=== PATIENT | male | born 1990 | race African-American/Black ===

== ENCOUNTER 2017-02-07 20:04 | Emergency (ER) | payer SELFPAY ==
[~2017-02-07] VITALS: Ht 190.5 cm; Wt 190.0 kg
[~2017-02-07 20:04] MED LIST: ASPI81TA82 PO; Z.0.NO CURRENT MEDS
[2017-02-07 20:06] VITALS: BP 176/100; PULSE 61; RESP 18; TEMP 98.1; O2SAT 100
[2017-02-07] MEDS ORDERED: ASPI81CH CHEW (21:05)
[2017-02-07] MEDS ORDERED: SODIUM CHLOR 0.9% 1000 ML INJ 1,000 ML IV ONE (21:33)
--- NOTE | 2017-02-07 21:34 | PD ---
HPI Chief Complaint: Medical Clearance Time Seen by Provider: 21:25 Travel History International Travel<30 days: No Contact w/Intl Traveler<30days: No Traveled to known affect area: No History of Present Illness HPI 26-year-old male presents to the emergency department for evaluation of dizziness and "feeling dazed" that started today. He states he has not felt right today. He denies any headache. No fevers, chills. He denies any chest pain or shortness of breath. He does state that he had some pressure in his neck earlier which was very mild. He denies any cardiac history. He denies any nausea, vomiting, diarrhea. He states he had some mild stomach pain earlier. Patient reports history of chronic leg pain. He takes aspirin daily, but no other medications. Patient denies any fevers or chills. He states that he felt like this in the past and was given meclizine. He thinks that he may be stressed out. No weakness. He states he was drinking alcohol this weekend. He states he did not drink water and thinks he may be dehydrated. [facility] Past Medical History Medical History: Denies Significant Hx Autoimmune Disease: No Cancer: No Cardiovascular Problems: No Diabetes: No Diminished Hearing: No Endocrine: No Glaucoma: No Genitourinary: No Hepatitis: No Hiatal Hernia: No Hypertension: Yes Immune Disorder: No Musculoskeletal: No Neurologic: No Psychiatric: No Reproductive: No Respiratory: No Immunizations Current: Yes Sickle Cell Disease: No Thyroid Disease: No Tetanus Vaccination: Unknown Influenza Vaccination: No Past Surgical History Abdominal Surgery: No Cardiac Surgery: No Ear Surgery: No Endocrine Surgery: No Eye Surgery: No Genitourinary Surgery: No Gynecologic Surgery: No Oral Surgery: No Pacemaker: No Thoracic Surgery: No Social History Alcohol Use: Yes (social) Tobacco Use: No Substance Use: No Allergies-Medications (Allergen,Severity, Reaction): Coded Allergies: No Known Allergies (Verified , 02/07/17) Reported Meds & Prescriptions Reported Meds & Active Scripts Active Reported Aspirin 81 Mg Chew 81 Mg CHEW ONCE Review of Systems Except as stated in HPI: all other systems reviewed are Neg Physical Exam Narrative GENERAL: Well-nourished, well-developed male patient, afebrile. SKIN: Focused skin assessment warm/dry. HEAD: Normocephalic. Atraumatic. EYES: No scleral icterus. No injection or drainage. NECK: Supple, trachea midline. No JVD or lymphadenopathy. CARDIOVASCULAR: Regular rate and rhythm without murmurs, gallops, or rubs. RESPIRATORY: Breath sounds equal bilaterally. No accessory muscle use. Lungs sounds are clear to auscultation. GASTROINTESTINAL: Abdomen soft, non-tender, nondistended. MUSCULOSKELETAL: No cyanosis, or edema. Bilateral upper and lower extremity strength 5/5. All extremities are neurovascularly intact. BACK: Nontender without obvious deformity. No CVA tenderness. NEUROLOGICAL: Awake and alert. Cranial nerves II through XII intact. Motor and sensory grossly within normal limits. Five out of 5 muscle strength in all muscle groups. Normal speech. Finger to nose normal bilaterally. [id number] is normal bilaterally. Data Data Last Documented VS Vital Signs Date Time Temp Pulse Resp B/P (MAP) Pulse Ox O2 Delivery O2 Flow Rate FiO2 02/07/17 22:03 16 98 Room Air 02/07/17 20:06 98.1 61 Orders Orders Electrocardiogram (02/07/17 21:33) Complete Blood Count With Diff (02/07/17 21:33) Comprehensive Metabolic Panel (02/07/17 21:33) Magnesium (Mg) (02/07/17 21:33) Ckmb (Isoenzyme) Profile (02/07/17 21:33) Troponin I (02/07/17 21:33) Ecg Monitoring (02/07/17 21:33) Iv Access Insert/Monitor (02/07/17 21:33) Oximetry (02/07/17 21:33) Sodium Chloride 0.9% Flush (Ns Flush) (02/07/17 21:45) Sodium Chlor 0.9% 1000 Ml Inj (Ns 1000 M (02/07/17 21:33) Meclizine (Antivert) (02/07/17 21:45) Labs Laboratory Tests Test 02/07/17 21:50 MDM Medical Decision Making Medical Screen Exam Complete: Yes Emergency Medical Condition: Yes Medical Record Reviewed: Yes Differential Diagnosis Vertigo versus dehydration versus electrolyte abnormality Narrative Course 26 year old male presents to the emergency department for evaluation of dizziness, feeling dazed today. He appears well on exam. Physical exam is unremarkable. EKG, CBC, CMP, CK, Troponin, Magnesium are ordered and pending. Patient is given NS 1 L IV bolus, meclizine 25 mg PO. EKG shows sinus bradycardia, HR 53, no acute ST changes. Labs are pending. Dr. Orr will resume care and disposition of patient pending lab results. Gloria Petersen Feb 07, 2017 21:34
[2017-02-07] MEDS ORDERED: MECLIZINE HCL 25 MG TAB PO ONE (21:45)
[2017-02-07] MEDS ORDERED: SODIUM CHLORIDE 0.9% FLUSH 10 ML FLUSH IVF PRN (21:45)
[2017-02-07 22:03] VITALS: RESP 16; O2SAT 98
[2017-02-07 22:52] VITALS: BP 128/72; PULSE 65; RESP 16; O2SAT 99
[2017-02-07 23:49] LABS: AUTOMATED NEUTROPHIL # 6.5 TH/MM3 (1.8-7.7); BASOPHIL # 0.1 TH/MM3 (0-0.2); BASOPHIL % 0.8 % (0.0-2.0); EOSINOPHIL # 0.2 TH/MM3 (0-0.4); HEMATOCRIT 45.3 % (39.0-51.0); LYMPH % 24.9 % (9.0-44.0); LYMPHOCYTE # 2.5 TH/MM3 (1.0-4.8); MEAN CELL VOLUME 81.1 FL (80.0-100.0); MEAN CORPUSCULAR HEMOGLOBIN 26.9 PG (27.0-34.0); MEAN CORPUSCULAR HGB CONC 33.2 % (32.0-36.0); MONO % 6.4 % (0.0-8.0); NEUT % 65.9 % (16.0-70.0); PLATELET COUNT 243 TH/MM3 (150-450); RED BLOOD COUNT 5.59 MIL/MM3 (4.50-5.90); RED CELL DISTRIBUTION WIDTH 14.6 % (11.6-17.2); WHITE BLOOD COUNT 9.9 TH/MM3 (4.0-11.0)
[2017-02-07 23:52] LABS: HEMO FLAGS AUTO DIFF
[2017-02-08 00:16] LABS: PLATELET ESTIMATE SMEAR NORMAL (NORMAL); PLATELET MORPHOLOGY NORMAL (NORMAL); SCAN/DIFF AUTO DIFF CONFIRMED
[2017-02-08 01:45] LABS: ALT (GPT) 30 U/L (12-78); ANION GAP 7 MEQ/L (5-15); AST (GOT) 16 U/L (15-37); BICARBONATE 26.7 MEQ/L (21.0-32.0); BLOOD UREA NITROGEN 11 MG/DL (7-18); CHLORIDE 105 MEQ/L (98-107); GLOMERULAR FILTRATION RATE 117 ML/MIN (>89); MAGNESIUM 1.9 MG/DL (1.5-2.5); POTASSIUM 3.6 MEQ/L (3.5-5.1); SODIUM (NA) 139 MEQ/L (136-145)
[2017-02-08 01:49] LABS: ALKALINE PHOSPHATASE 46 U/L (45-117); CREATINE KINASE 515 U/L (39-308); TOTAL BILIRUBIN ADULT 0.4 MG/DL (0.2-1.0)
[2017-02-08 02:02] LABS: CKMB 11.2 NG/ML (0.5-3.6)
--- NOTE | 2017-02-08 02:14 | PD ---
Physical Exam Narrative Patient was seen by my mobile unit assistant and signed out to me. Data Data Last Documented VS Vital Signs Date Time Temp Pulse Resp B/P (MAP) Pulse Ox O2 Delivery O2 Flow Rate FiO2 02/07/17 22:52 65 16 128/72 (90) 99 Room Air 02/07/17 20:06 98.1 Orders Orders Electrocardiogram (02/07/17 21:33) Complete Blood Count With Diff (02/07/17 21:33) Comprehensive Metabolic Panel (02/07/17 21:33) Magnesium (Mg) (02/07/17 21:33) Ckmb (Isoenzyme) Profile (02/07/17 21:33) Troponin I (02/07/17 21:33) Ecg Monitoring (02/07/17 21:33) Iv Access Insert/Monitor (02/07/17 21:33) Oximetry (02/07/17 21:33) Sodium Chloride 0.9% Flush (Ns Flush) (02/07/17 21:45) Sodium Chlor 0.9% 1000 Ml Inj (Ns 1000 M (02/07/17 21:33) Meclizine (Antivert) (02/07/17 21:45) CKMB (02/07/17 01:05) CKMB% (02/07/17 01:05) Labs Laboratory Tests Test 02/07/17 01:05 02/07/17 23:00 Blood Urea Nitrogen 11 MG/DL Creatinine 0.95 MG/DL Random Glucose 99 MG/DL Total Protein 7.7 GM/DL Albumin 3.6 GM/DL Calcium Level 8.5 MG/DL Magnesium Level 1.9 MG/DL Alkaline Phosphatase 46 U/L Aspartate Amino Transf (AST/SGOT) 16 U/L Alanine Aminotransferase (ALT/SGPT) 30 U/L Total Bilirubin 0.4 MG/DL Sodium Level 139 MEQ/L Potassium Level 3.6 MEQ/L Chloride Level 105 MEQ/L Carbon Dioxide Level 26.7 MEQ/L Anion Gap 7 MEQ/L Estimat Glomerular Filtration Rate 117 ML/MIN Total Creatine Kinase 515 U/L Creatine Kinase MB 11.2 NG/ML Creatine Kinase MB % 2.2 % Troponin I LESS THAN 0.02 NG/ML White Blood Count 9.9 TH/MM3 Red Blood Count 5.59 MIL/MM3 Hemoglobin 15.0 GM/DL Hematocrit 45.3 % Mean Corpuscular Volume 81.1 FL Mean Corpuscular Hemoglobin 26.9 PG Mean Corpuscular Hemoglobin Concent 33.2 % Red Cell Distribution Width 14.6 % Platelet Count 243 TH/MM3 Mean Platelet Volume 9.3 FL Neutrophils (%) (Auto) 65.9 % Lymphocytes (%) (Auto) 24.9 % Monocytes (%) (Auto) 6.4 % Eosinophils (%) (Auto) 2.0 % Basophils (%) (Auto) 0.8 % Neutrophils # (Auto) 6.5 TH/MM3 Lymphocytes # (Auto) 2.5 TH/MM3 Monocytes # (Auto) 0.6 TH/MM3 Eosinophils # (Auto) 0.2 TH/MM3 Basophils # (Auto) 0.1 TH/MM3 CBC Comment AUTO DIFF Differential Comment AUTO DIFF CONFIRMED Platelet Estimate NORMAL Platelet Morphology Comment NORMAL Red Cell Morphology Comment NORMAL MDM Supervised Visit with MARIEL: Yes Interpretation(s) CBC within normal limit. CMP within normal limit. Cardiac Enzymes are normal. Diagnosis Primary Impression: Viral syndrome Patient Instructions: General Instructions Additional Instruction: Encourage by mouth fluids. Follow-up with personal physician. Return if worse. Med/Other Pt SpecificInfo: No Change to Meds Disposition: 01 DISCHARGE HOME Condition: Stable [place] Orr MD Feb 08, 2017 02:14
--- NOTE | 2017-02-08 14:35 | EKG ---
Date Performed: 02/07/2017 Time Performed: 21:49:03 PTAGE: 26 years EKG: SINUS BRADYCARDIA WITH SINUS ARRHYTHMIA BORDERLINE ECG Compared to prior tracing no signifi cant change PREVIOUS TRACING DOCTOR: Kyrie Ott Interpretating Date/Time 02/08/2017 14:32:42
== END 2017-02-08 02:22 | disposition home or self-care (01) ==
LOC: NEPC 20:04
DX: B34.9 Viral infection, unspecified (principal); R42 Dizziness and giddiness; R00.1 Bradycardia, unspecified; I49.8 Other specified cardiac arrhythmias; M79.606 Pain in leg, unspecified; G89.29 Other chronic pain; I10 Essential (primary) hypertension; Z79.82 Long term (current) use of aspirin
CPT/HCPCS: 80053; 82550; 82552; 83735; 84484; 85025; 93005